=== PATIENT | female | born 1960 | race Two or more races ===

== ENCOUNTER 2025-04-02 11:46 | Inpatient (IN) | payer OTHER ==
[~2025-04-02] VITALS: Ht 162.6 cm; Wt 67.1 kg
--- NOTE | 2025-04-02 13:50 | NUR ---
PTE ALERTA Y ORIENTADA X3 VERBALIZA QUE TIENE DENVER DOLOR ABDOMINAL PELVICO Y NO MEJORA DESDE LAS 10AM DE SPUES DE COMER PTE PADECE DE DIVERTICULOS
[2025-04-02] MEDS ORDERED: FAMOTIDINE/PF 20 MG/2 ML VIAL IV ONE (14:15)
[2025-04-02] MEDS ORDERED: 0.9 % SODIUM CHLORIDE 1,000 ML IV ONE (14:15)
[2025-04-02] MEDS ORDERED: ONDANSETRON HCL 2 MG/ML VIAL IV ONE (14:15)
--- NOTE | 2025-04-02 14:41 | NUR ---
SE ORIENTA PTE SOBRE TX A SEGUIR, LA MISMA REFIERE ENTENDER. SE BRENNEN MUESTRA DE LAB, SE CANALIZA Y SE ADMINISTRA MED TAL ORDEN MEDICA
[2025-04-02 14:58] LABS: URINE APPEARANCE Clear; URINE BILIRRUBIN Negative (NEGATIVE); URINE COLOR Dark Yellow; URINE GLUCOSE Negative (NEGATIVE); URINE LEUKOCYTE Small; URINE NITRATE Negative; URINE PROTEIN Trace (NEGATIVE); URINE UROBILINOGEN 1.0 E.U./dl
[2025-04-02 15:02] LABS: URINE EPITHELIAL CELLS 15.3 uL (0.0-38.8); URINE RBC 30.9 uL (0.0-20.8); URINE WBC 4.3 uL (0.0-23.2)
[2025-04-02 15:05] LABS: URINE BACTERIA 3.5 uL (0.0-1933); URINE BLOOD TRACE; URINE CAST 0.29 uL (0.0-1.40); URINE KETONE 40 (NEGATIVE)
[2025-04-02 15:31] LABS: INR 1.11
[2025-04-02 15:35] LABS: ALT/SGPT 28.0 U/L (12-78); AST/SGOT 19.0 U/L (15-37); BILIRUBIN TOTAL 0.56 mg/dL (0.3-1.2); BUN CREA RATIO 19.0 (7.0-25.0); CREATININE SERUM 0.78 mg/dL (0.55-1.02); GFR 74.83; GLOBULINA 3.3 G/DL (2.4-3.5); GLUCOSE FASTING 122.0 mg/dL (65-100); OSMOLALITY SERUM 283.0 MOSM/KG (275-295)
[2025-04-02 15:37] LABS: BASO % 0.2 % (0.1-1.2); EOS # 0.01 (0.04-0.54); EOS % 0.0 % (0.7-7.0); LYMPH # 1.17 (1.18-3.74); LYMPH % 3.6 % (19.3-53.1); MEAN PLATELET VOLUME 10.10 fl (9.4-12.4); MONO # 1.30 (0.24-0.82); MONO % 4.0 % (4.7-12.5); NEUT # 29.68 (1.56-6.13); NEUT % 91.6 % (34.0-71.1); RED CELL DISTRIBUTION WIDTH 13.4 % (11.6-14.4)
[2025-04-02 15:41] LABS: LYMPHOCYTE MAN 6.0 %; MONOCYTE MAN 2.0 %; NEUTROPHILS MAN 92.0 %
[2025-04-02 15:48] LABS: ERYTHROCYTE SEDIMENTATION RATE 27 mm/hr (0-30)
[2025-04-02] MEDS ORDERED: MORPHINE SULFATE 2 MG/ML SYRINGE IV ONE (16:15)
[2025-04-02] MEDS ORDERED: MEROPENEM 1,000 MG VIAL IV ONE (17:45)
[2025-04-03] MEDS ORDERED: 0.9 % SODIUM CHLORIDE 1,000 ML IV SCH (01:00)
[2025-04-03] MEDS ORDERED: MEROPENEM 500 MG/VIAL VIAL IV SCH (08:00)
[2025-04-03] MEDS ORDERED: ONDANSETRON HCL 2 MG/ML VIAL IV NR (12:45)
[2025-04-03] MEDS ORDERED: FAMOTIDINE/PF 20 MG/2 ML VIAL IV PUSH NR (12:45)
[2025-04-03 18:01] VITALS: BP 129/81
[2025-04-04 02:08] VITALS: BP 117/70; O2SAT 97
[2025-04-04] MEDS ORDERED: ONDANSETRON HCL 2 MG/ML VIAL IV NR (05:00)
[2025-04-04 06:49] LABS: BASO % 0.2 % (0.1-1.2); EOS # 0.00 (0.04-0.54); EOS % 0.0 % (0.7-7.0); LYMPH # 1.85 (1.18-3.74); LYMPH % 5.2 % (19.3-53.1); MEAN PLATELET VOLUME 10.90 fl (9.4-12.4); MONO # 1.45 (0.24-0.82); MONO % 4.1 % (4.7-12.5); NEUT # 31.67 (1.56-6.13); NEUT % 89.1 % (34.0-71.1); RED CELL DISTRIBUTION WIDTH 13.8 % (11.6-14.4)
[2025-04-04 07:32] LABS: ALT/SGPT 19.0 U/L (12-78); AST/SGOT 12.0 U/L (15-37); BILIRUBIN TOTAL 0.69 mg/dL (0.3-1.2); BUN CREA RATIO 22.0 (7.0-25.0); CREATININE SERUM 0.72 mg/dL (0.55-1.02); GFR 82.08; GLOBULINA 3.3 G/DL (2.4-3.5); GLUCOSE FASTING 113.0 mg/dL (65-100); OSMOLALITY SERUM 281.0 MOSM/KG (275-295)
[2025-04-04 07:50] LABS: INR 1.14
[2025-04-04 08:51] VITALS: BP 110/66; O2SAT 96
[2025-04-04] MEDS ORDERED: PANTOPRAZOLE SODIUM 40 MG/VIAL VIAL IV NR (15:45)
[2025-04-04] MEDS ORDERED: FAMOTIDINE/PF 20 MG/2 ML VIAL IV SCH (17:00)
[2025-04-04 21:02] VITALS: BP 144/77
[2025-04-05 03:42] VITALS: BP 121/71; O2SAT 97
[2025-04-05 07:42] LABS: BASO % 0.1 % (0.1-1.2); EOS # 0.01 (0.04-0.54); EOS % 0.0 % (0.7-7.0); LYMPH # 1.79 (1.18-3.74); LYMPH % 6.3 % (19.3-53.1); MEAN PLATELET VOLUME 10.00 fl (9.4-12.4); MONO # 1.12 (0.24-0.82); MONO % 3.9 % (4.7-12.5); NEUT # 25.17 (1.56-6.13); NEUT % 88.3 % (34.0-71.1); RED CELL DISTRIBUTION WIDTH 13.7 % (11.6-14.4)
[2025-04-05 08:00] VITALS: BP 128/67; O2SAT 96
[2025-04-05] MEDS ORDERED: PANTOPRAZOLE SODIUM 40 MG/VIAL VIAL IV SCH (09:00)
[2025-04-05] MEDS ORDERED: ACETAMINOPHEN 325 MG TABLET PO PRN (12:15)
[2025-04-05 19:12] VITALS: BP 136/70; O2SAT 98
[2025-04-06 02:22] VITALS: BP 136/70; O2SAT 97
[2025-04-06 06:25] LABS: BASO % 0.3 % (0.1-1.2); EOS # 0.02 (0.04-0.54); EOS % 0.1 % (0.7-7.0); LYMPH # 1.86 (1.18-3.74); LYMPH % 8.9 % (19.3-53.1); MEAN PLATELET VOLUME 10.70 fl (9.4-12.4); MONO # 1.13 (0.24-0.82); MONO % 5.4 % (4.7-12.5); NEUT # 17.61 (1.56-6.13); NEUT % 83.8 % (34.0-71.1); RED CELL DISTRIBUTION WIDTH 13.6 % (11.6-14.4)
[2025-04-06 08:00] VITALS: BP 143/73; O2SAT 95
[2025-04-06 15:08] LABS: BUN CREA RATIO 30.0 (7.0-25.0); CHOL HDL RATIO 4.0 (0-5.0); CREATININE SERUM 0.4 mg/dL (0.55-1.02); GFR 161.73; GLUCOSE FASTING 60.0 mg/dL (65-100); HDL 42.0 mg/dl (40-60); LDL 106.0 mg/dl (0-130); OSMOLALITY SERUM 273.0 MOSM/KG (275-295); VLDL 22.0 (0-39)
[2025-04-06] MEDS ORDERED: AA 2.36%/D6.8W/FAT/E-LYTES NO9 1,440 ML IV SCH (17:00)
[2025-04-06 17:50] VITALS: BP 146/72
[2025-04-07 02:49] VITALS: BP 128/67; O2SAT 96
[2025-04-07 06:26] LABS: BASO % 0.3 % (0.1-1.2); EOS # 0.08 (0.04-0.54); EOS % 0.5 % (0.7-7.0); LYMPH # 1.91 (1.18-3.74); LYMPH % 11.5 % (19.3-53.1); MEAN PLATELET VOLUME 11.30 fl (9.4-12.4); MONO # 1.03 (0.24-0.82); MONO % 6.2 % (4.7-12.5); NEUT # 13.39 (1.56-6.13); NEUT % 80.2 % (34.0-71.1); RED CELL DISTRIBUTION WIDTH 12.7 % (11.6-14.4)
[2025-04-07 07:07] LABS: ALT/SGPT 26.0 U/L (12-78); AST/SGOT 26.0 U/L (15-37); BILIRUBIN TOTAL 0.58 mg/dL (0.3-1.2); BUN CREA RATIO 20.0 (7.0-25.0); CREATININE SERUM 0.45 mg/dL (0.55-1.02); GFR 141.18; GLOBULINA 3.1 G/DL (2.4-3.5); GLUCOSE FASTING 125.0 mg/dL (65-100); OSMOLALITY SERUM 272.0 MOSM/KG (275-295)
[2025-04-07 08:49] VITALS: BP 138/73; O2SAT 96
[2025-04-07 18:05] VITALS: BP 129/75
[2025-04-08 02:36] VITALS: BP 132/80; O2SAT 95
[2025-04-08 08:32] VITALS: BP 124/83; O2SAT 97
[2025-04-08] MEDS ORDERED: LACTOBACILLUS ACIDOPHILUS 1 CAP CAP PO SCH (17:00)
[2025-04-08 18:43] VITALS: BP 130/75; O2SAT 96
[2025-04-09 02:23] VITALS: BP 135/72; O2SAT 97
[2025-04-09 07:34] LABS: BASO % 0.3 % (0.1-1.2); EOS # 0.16 (0.04-0.54); EOS % 0.9 % (0.7-7.0); LYMPH # 2.24 (1.18-3.74); LYMPH % 13.3 % (19.3-53.1); MEAN PLATELET VOLUME 10.20 fl (9.4-12.4); MONO # 1.09 (0.24-0.82); MONO % 6.4 % (4.7-12.5); NEUT # 13.10 (1.56-6.13); NEUT % 77.6 % (34.0-71.1); RED CELL DISTRIBUTION WIDTH 12.7 % (11.6-14.4)
[2025-04-09 08:14] LABS: ALT/SGPT 26.0 U/L (12-78); AST/SGOT 17.0 U/L (15-37); BILIRUBIN TOTAL 0.56 mg/dL (0.3-1.2); BUN CREA RATIO 19.0 (7.0-25.0); CREATININE SERUM 0.47 mg/dL (0.55-1.02); GFR 134.27; GLOBULINA 3.1 G/DL (2.4-3.5); GLUCOSE FASTING 100.0 mg/dL (65-100); OSMOLALITY SERUM 273.0 MOSM/KG (275-295)
[2025-04-09 09:26] VITALS: BP 118/70; O2SAT 95
[2025-04-09] MEDS ORDERED: FLUCONAZOLE IN NACL,ISO-OSM 400 MG/200 ML PIGGYBAG IV NR (16:30)
[2025-04-09 17:48] VITALS: BP 116/60; O2SAT 97
[2025-04-09] MEDS ORDERED: VANCOMYCIN HCL 125 MG CAPSULE PO SCH (18:00)
[2025-04-10 02:12] VITALS: BP 159/78; O2SAT 96
[2025-04-10 09:18] VITALS: BP 144/81; O2SAT 96
[2025-04-10] MEDS ORDERED: FLUCONAZOLE IN NACL,ISO-OSM 100 ML IV SCH (12:00)
[2025-04-10] MEDS ORDERED: DEXTROSE 5 % AND 0.9 % NACL 1,000 ML IV SCH (14:00)
[2025-04-10 18:09] VITALS: BP 156/78; O2SAT 98
[2025-04-11 03:04] VITALS: BP 129/70; O2SAT 99
[2025-04-11 06:12] LABS: BASO % 0.4 % (0.1-1.2); EOS # 0.27 (0.04-0.54); EOS % 2.6 % (0.7-7.0); LYMPH # 1.99 (1.18-3.74); LYMPH % 18.9 % (19.3-53.1); MEAN PLATELET VOLUME 10.20 fl (9.4-12.4); MONO # 0.81 (0.24-0.82); MONO % 7.7 % (4.7-12.5); NEUT # 7.27 (1.56-6.13); NEUT % 68.8 % (34.0-71.1); RED CELL DISTRIBUTION WIDTH 13.2 % (11.6-14.4)
[2025-04-11 06:41] LABS: ALT/SGPT 45.0 U/L (12-78); AST/SGOT 22.0 U/L (15-37); BILIRUBIN TOTAL 0.65 mg/dL (0.3-1.2); BILIRUBIN,CONJUGATED 0.25 mg/dL (0.0-0.2); BUN CREA RATIO 11.0 (7.0-25.0); CHOL HDL RATIO 4.6 (0-5.0); CREATININE SERUM 0.54 mg/dL (0.55-1.02); GFR 114.39; GLOBULINA 3.0 G/DL (2.4-3.5); GLUCOSE FASTING 112.0 mg/dL (65-100); HDL 36.0 mg/dl (40-60); LDL 105.0 mg/dl (0-130); OSMOLALITY SERUM 281.0 MOSM/KG (275-295); VLDL 26.0 (0-39)
[2025-04-11 08:07] LABS: UREA CLEARANCE 51.3 ML/MIN
[2025-04-11 11:18] VITALS: BP 111/67; BP 131/72; O2SAT 92; O2SAT 97
[2025-04-11 16:27] VITALS: BP 144/79; O2SAT 96
[2025-04-12 00:57] VITALS: BP 144/76; O2SAT 97
[2025-04-12 09:23] VITALS: BP 130/83; O2SAT 98
[2025-04-12] MEDS ORDERED: DIATRIZOATE MEGLUMINE, SODIUM 30 ML BOTTLE PO NR (13:00)
[2025-04-12 18:22] VITALS: BP 156/78; O2SAT 96
[2025-04-13 03:24] VITALS: BP 131/74; O2SAT 98
[2025-04-13 06:17] LABS: BASO % 0.4 % (0.1-1.2); EOS # 0.29 (0.04-0.54); EOS % 2.6 % (0.7-7.0); LYMPH # 2.04 (1.18-3.74); LYMPH % 18.2 % (19.3-53.1); MEAN PLATELET VOLUME 9.50 fl (9.4-12.4); MONO # 0.97 (0.24-0.82); MONO % 8.7 % (4.7-12.5); NEUT # 7.75 (1.56-6.13); NEUT % 69.3 % (34.0-71.1); RED CELL DISTRIBUTION WIDTH 13.1 % (11.6-14.4)
[2025-04-13 09:38] VITALS: BP 135/78; O2SAT 98
[2025-04-13 18:20] VITALS: BP 124/88
[2025-04-14 03:18] VITALS: BP 125/78; O2SAT 99
[2025-04-14 09:44] VITALS: BP 139/85; O2SAT 99
[2025-04-14 22:08] VITALS: BP 130/79
[2025-04-15 03:17] VITALS: BP 137/81; O2SAT 97
[2025-04-15 10:21] VITALS: BP 128/80; O2SAT 97
== END 2025-04-15 14:39 | disposition home or self-care (01) | DRG 391 ==
LOC: ER 11:46 → MEDJ 04-03 04:34
PROVIDERS: Internal Medicine; Internal Medicine Infectious Disease; ADMIT Student in an Organized Health Care Education/Training Program; ATTEND Student in an Organized Health Care Education/Training Program
PROC: BW21YZZ Computerized Tomography (CT Scan) of Abdomen and Pelvis using Other Contrast (ICD-10-PCS; 2025-04-02)
PROC: 3E0336Z Introduction of Nutritional Substance into Peripheral Vein, Percutaneous Approach (ICD-10-PCS; 2025-04-05)
PROC: BW21YZZ Computerized Tomography (CT Scan) of Abdomen and Pelvis using Other Contrast (ICD-10-PCS; 2025-04-07)
PROC: 0D9W30Z Drainage of Peritoneum with Drainage Device, Percutaneous Approach (ICD-10-PCS; principal; 2025-04-08)
PROC: 8E0ZXY6 Isolation (ICD-10-PCS; 2025-04-09)
PROC: BW21YZZ Computerized Tomography (CT Scan) of Abdomen and Pelvis using Other Contrast (ICD-10-PCS; 2025-04-12)
PROC: 0WPGX0Z Removal of Drainage Device from Peritoneal Cavity, External Approach (ICD-10-PCS; 2025-04-14)
DX: K57.20 Diverticulitis of large intestine with perforation and abscess without bleeding (principal); K65.1 Peritoneal abscess; B37.89 Other sites of candidiasis; D72.829 Elevated white blood cell count, unspecified; Z88.6 Allergy status to analgesic agent; Z88.1 Allergy status to other antibiotic agents; Z88.0 Allergy status to penicillin; Z88.2 Allergy status to sulfonamides